=== PATIENT | male | born 1985 | race Caucasian/White ===

== ENCOUNTER 2016-12-22 20:40 | Emergency (ER) | payer OTHER ==
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
[2016-12-22 21:16] VITALS: BP 129/81
== END 2016-12-22 21:14 | disposition home or self-care (01) ==
LOC: UCCORT 20:40
DX: M54.2 Cervicalgia (principal); R51 Headache; F12.90 Cannabis use, unspecified, uncomplicated; F14.90 Cocaine use, unspecified, uncomplicated; F17.210 Nicotine dependence, cigarettes, uncomplicated; Z88.0 Allergy status to penicillin; Z88.2 Allergy status to sulfonamides
CPT/HCPCS: 99213; G0463

== ENCOUNTER 2018-05-10 11:44 | Emergency (ER) | payer SELFPAY ==
[2018-05-10 12:39] VITALS: BP 107/81
--- NOTE | 2018-05-10 12:50 | UC ---
Upper Extremity HPI - HPI Summary HPI Summary: 33-year-old male comes in with a chief complaint of bilateral hand and forearm pain. Been going on for days. Pains been waking him up in the morning. Worse on the left than the right. Pain is in the wrist and the forearms. Pain is worse with gripping or flexing extending of the wrist. The pains present when he wakes up and then gradually gets better however this morning when he woke up with the pain pain is not Better. No weakness or numbness no neck pain no injuries. His similar episode a few years ago in the left arm that was treated with cock-up splint and is improved. 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 - History of Current Complaint Chief Complaint: UCUpperExtremity Stated Complaint: B/L ARM PAIN Time Seen by Provider: 05/10/18 12:37 Pain Intensity: 3 - Allergies/Home Medications Allergies/Adverse Reactions: Allergies Allergy/AdvReac Type Severity Reaction Status Date / Time Penicillins Allergy Pain Verified 05/10/18 12:33 Sulfa (Sulfonamide Allergy Anaphylatic Verified 05/10/18 12:33 Antibiotics) Shock PMH/Surg Hx/FS Hx/Imm Hx Previously Healthy: Yes - Surgical History Surgical History: Yes Surgery Procedure, Year, and Place: L GREAT TOE SX. L SHOULDER SX. EAR TUBES - Family History Known Family History: Positive: Unknown - Social History Alcohol Use: None Substance Use Type: None Substance Use Comment - Amount & Last Used: No current drug use, reports hx of marijuana use, hx of cocaine use Smoking Status (MU): Heavy Every Day Tobacco Smoker Type: Cigarettes Amount Used/How Often: 1 ppd Length of Time of Smoking/Using Tobacco: 10 yrs Have You Smoked in the Last Year: Yes Household Exposure Type: Cigarettes - Immunization History Most Recent Influenza Vaccination: 2014 Most Recent Tetanus Shot: UNSURE Most Recent Pneumonia Vaccination: NEVER Review of Systems All Other Systems Reviewed And Are Negative: Yes Constitutional: Positive: Negative Skin: Positive: Negative Eyes: Positive: Negative ENT: Positive: Negative Respiratory: Positive: Negative Cardiovascular: Positive: Negative Gastrointestinal: Positive: Negative Motor: Positive: Negative Neurovascular: Positive: Negative Musculoskeletal: Positive: Other: - see hpi Neurological: Positive: Negative Psychological: Positive: Negative Is Patient Immunocompromised?: No Physical Exam Triage Information Reviewed: Yes Appearance: Well-Appearing, Well-Nourished, Pain Distress - mild Vital Signs: Initial Vital Signs Temp 98.3 F 05/10/18 12:34 Pulse 69 05/10/18 12:34 Resp 14 05/10/18 12:34 BP 107/81 05/10/18 12:34 Pulse Ox 97 05/10/18 12:34 Vital Signs Reviewed: Yes Eye Exam: Normal Eyes: Positive: Conjunctiva Clear Neck exam: Normal Neck: Positive: Supple, Nontender Respiratory: Positive: Lungs clear, Normal breath sounds, No respiratory distress Cardiovascular: Positive: RRR Musculoskeletal: Positive: Other: - Positive bilateral Tinel's. Pain is worse in the thumb and second third fingers it's less and the fifth and fourth fingers bilaterally. 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 Normal capillary refill no sensation deficit. Neurological Exam: Normal Neurological: Positive: Alert, Muscle Tone Normal Psychological Exam: Normal Psychological: Positive: Normal Response To Family, Age Appropriate Behavior Skin Exam: Normal Skin: Positive: Rashes Upper Extremity Course/Dx - Course Course Of Treatment: Examination and history are consistent with bilateral carpal tunnel syndrome. Patient has no neck pain. We will treat with splints eyes anti-inflammatories and follow-up with orthopedics. - Differential Dx/Diagnosis Provider Diagnosis: Carpal tunnel syndrome on both sides Discharge - Sign-Out/Discharge Documenting (check all that apply): Patient Departure All imaging exams completed and their final reports reviewed: No Studies - Discharge Plan Condition: Stable Disposition: HOME Prescriptions: Ibuprofen TAB* [Motrin TAB* 600 MG] 600 mg PO Q6H PRN #40 tab PRN Reason: Pain Patient Education Materials: Tendinitis (ED) Referrals: Justin Gao MD [Primary Care Provider] - Laurence Reyes MD [Medical Doctor] - Additional Instructions: FOLLOW UP WITH ORTHOPEDICS. GET RECHECKED FOR ANY WORSENING OF YOUR CONDITION OR QUESTIONS OR CONCERNS. - Billing Disposition and Condition Condition: STABLE Disposition: Home
== END 2018-05-10 13:05 | disposition home or self-care (01) ==
LOC: UCCORT 11:44
DX: G56.03 Carpal tunnel syndrome, bilateral upper limbs (principal); Z88.0 Allergy status to penicillin; Z88.2 Allergy status to sulfonamides; F17.210 Nicotine dependence, cigarettes, uncomplicated
CPT/HCPCS: 99213; G0463

== ENCOUNTER 2018-11-20 16:20 | Emergency (ER) | payer BC ==
[2018-11-20 16:39] VITALS: BP 112/66
[2018-11-20] MEDS ORDERED: Lidocaine 1% INJ* 10 MG/ML 30 ML SDV INJ ONE (16:44)
[2018-11-20] MEDS ORDERED: Lidocaine 1% MPF* 2 ML VIAL INJ ONE (16:50)
[2018-11-20] MEDS ORDERED: Lidocaine 1%** 5 ML VIAL INJ ONE (16:59)
--- NOTE | 2018-11-20 17:29 | UC ---
Laceration HPI - HPI Summary HPI Summary: Pt presents with c/o laceration to right thumb, base of thumb, lateral aspect. Pt was washing dishes at home and glass broke while washing and pt cut thumb. Pt is UTD with tetanus. - History Of Current Complaint Chief Complaint: UCLaceration Stated Complaint: RIGHT THUMB LAC Time Seen by Provider: 11/20/18 16:43 Hx Obtained From: Patient Laceration Location: Finger - right thumb Mechanism Of Injury: Sharp Trauma Onset/Duration: Sudden Onset, Still Present Severity: Moderate Pain Intensity: 0 Aggravating Factors: Position, Movement Related History: Dominant Hand Right - Allergies/Home Medications Allergies/Adverse Reactions: Allergies Allergy/AdvReac Type Severity Reaction Status Date / Time Penicillins Allergy Pain Verified 11/20/18 16:31 Sulfa (Sulfonamide Allergy Anaphylatic Verified 11/20/18 16:31 Antibiotics) Shock Home Medications: Home Medications Buprenorp/Nalox 8-2 MG SL TAB [Suboxone 8-2 mg SL TAB*] 1 tab.sl SL DAILY [History Confirmed 11/20/18] PMH/Surg Hx/FS Hx/Imm Hx Previously Healthy: Yes - Surgical History Surgical History: Yes Surgery Procedure, Year, and Place: L GREAT TOE SX. L SHOULDER SX. EAR TUBES - Family History Known Family History: Positive: Unknown - Social History Occupation: Employed Full-time Lives: With Family Alcohol Use: None Substance Use Type: None Substance Use Comment - Amount & Last Used: IN RECOVERY , ON SUBOX[employer] Smoking Status (MU): Heavy Every Day Tobacco Smoker Type: Cigarettes Amount Used/How Often: 1 ppd Length of Time of Smoking/Using Tobacco: 10 yrs Have You Smoked in the Last Year: Yes Household Exposure Type: Cigarettes - Immunization History Most Recent Influenza Vaccination: 2013 Most Recent Tetanus Shot: 2010 Most Recent Pneumonia Vaccination: NEVER Vaccination Up to Date: Yes Review of Systems All Other Systems Reviewed And Are Negative: Yes Constitutional: Positive: Negative Skin: Positive: Other - laceration to right thumb. Eyes: Positive: Negative ENT: Positive: Negative Respiratory: Positive: Negative Cardiovascular: Positive: Negative Gastrointestinal: Positive: Negative Genitourinary: Positive: Negative Motor: Positive: Negative Neurovascular: Positive: Negative Musculoskeletal: Positive: Myalgia - at laceration site Neurological: Positive: Negative Psychological: Positive: Negative Is Patient Immunocompromised?: No Physical Exam Triage Information Reviewed: Yes Appearance: Well-Appearing Vital Signs: Initial Vital Signs Temp 98.7 F 11/20/18 16:32 Pulse 109 11/20/18 16:32 Resp 17 11/20/18 16:32 BP 112/66 11/20/18 16:32 Pulse Ox 98 11/20/18 16:32 Vital Signs Reviewed: Yes Eye Exam: Normal ENT Exam: Normal ENT: Positive: Hearing grossly normal Dental Exam: Normal Neck exam: Normal Respiratory Exam: Normal Respiratory: Positive: No respiratory distress Musculoskeletal Exam: Normal Musculoskeletal: Positive: Strength Intact, ROM Intact Neurological Exam: Normal Psychological Exam: Normal Skin Exam: Other - laceration to right thumb Laceration Repair - Laceration Repair 1 Description: Linear Laceration Size After Repair: Length (cm) - 1.5, Width (mm) - 4, Depth (mm) - 4 Modified For Repair: No Anesthesia Used: 1.0% Lido Cleansing Completed Via Routine Prep: Yes Irrigation With Pressure Irrigation Device: Yes Closure Material: Sutures Closure Method: Single Layer Suture Of: Skin Suture Type: Prolene - 7 sutures of 4-0 prolene placed Laceration Course/Dx - Differential Dx - Laceration/Wound Differental Diagnoses: Laceration - Diagnosis Provider Diagnosis: Laceration of right thumb Discharge - Sign-Out/Discharge Documenting (check all that apply): Patient Departure All imaging exams completed and their final reports reviewed: No Studies - Discharge Plan Condition: Stable Disposition: HOME Patient Education Materials: Care For Your Stitches (ED), Laceration (ED) Referrals: Justin Gao MD [Primary Care Provider] - If Needed Additional Instructions: Please return to clinic in 7-10 days for suture removal. Please monitor for signs or symptoms of infection including but not limited to: increased redness, tenderness, purulent discharge fever and/or red streaking from wound. - Billing Disposition and Condition Condition: STABLE Disposition: Home
== END 2018-11-20 17:51 | disposition home or self-care (01) ==
LOC: UCCORT 16:20
DX: S61.011A Laceration without foreign body of right thumb without damage to nail, initial encounter (principal); W25.XXXA Contact with sharp glass, initial encounter; Y93.G1 Activity, food preparation and clean up; Y92.000 Kitchen of unspecified non-institutional (private) residence as the place of occurrence of the external cause; Z88.0 Allergy status to penicillin; Z88.2 Allergy status to sulfonamides
CPT/HCPCS: 12001; 99211; G0463

== ENCOUNTER 2019-06-01 11:13 | Emergency (ER) | payer BC, MEDICAID ==
[2019-06-01 12:56] VITALS: BP 121/95
--- NOTE | 2019-06-01 13:12 | UC ---
Ear Complaint HPI - HPI Summary HPI Summary: 34-year-old male comes in with chief complaint of upper respiratory tract infection symptoms for more than 10 days.'s been having rhinorrhea and yellow he still has left-sided maxillary sinus pressure. Now is been having left ear pain. He was using Q-tips to clean his left ear and it was quite painful have blood on the Q-tip after cleaning it. No recent fevers. No complaint of any shortness of breath. - History of Current Complaint Chief Complaint: UCEar Stated Complaint: lt ear pain Time Seen by Provider: 06/01/19 13:05 Pain Intensity: 0 - Allergies/Home Medications Allergies/Adverse Reactions: Allergies Allergy/AdvReac Type Severity Reaction Status Date / Time Penicillins Allergy Pain Verified 06/01/19 12:55 Sulfa (Sulfonamide Allergy Anaphylatic Verified 06/01/19 12:55 Antibiotics) Shock Home Medications: Home Medications Omeprazole CAP (NF) [Prilosec CAP* 20 MG] 40 mg PO DAILY 06/01/19 [History Confirmed 06/01/19] PMH/Surg Hx/FS Hx/Imm Hx Previously Healthy: Yes GI/ History: Gastroesophageal Reflux - Surgical History Surgical History: Yes Surgery Procedure, Year, and Place: L GREAT TOE SX. L SHOULDER SX. EAR TUBES - Family History Known Family History: Positive: Unknown - Social History Alcohol Use: None Substance Use Type: None Substance Use Comment - Amount & Last Used: IN RECOVERY , ON SUBOXONE Smoking Status (MU): Heavy Every Day Tobacco Smoker Type: Cigarettes Amount Used/How Often: 1/2 ppd Length of Time of Smoking/Using Tobacco: 10 yrs Have You Smoked in the Last Year: Yes Household Exposure Type: Cigarettes - Immunization History Most Recent Influenza Vaccination: 2013 Most Recent Tetanus Shot: 2010 Most Recent Pneumonia Vaccination: NEVER Vaccination Up to Date: Yes Review of Systems All Other Systems Reviewed And Are Negative: Yes Constitutional: Positive: Other - SEE HPI Skin: Positive: Negative Eyes: Positive: Negative ENT: Positive: Ear Ache, Nasal Discharge, Sinus Congestion, Sinus Pain/ Tenderness Respiratory: Positive: Negative Cardiovascular: Positive: Negative Gastrointestinal: Positive: Negative Motor: Positive: Negative Neurovascular: Positive: Negative Musculoskeletal: Positive: Negative Neurological: Positive: Negative Psychological: Positive: Negative Is Patient Immunocompromised?: No Physical Exam Triage Information Reviewed: Yes Appearance: Well-Appearing, No Pain Distress, Well-Nourished Vital Signs: Initial Vital Signs Temp 97.6 F 06/01/19 12:54 Pulse 67 06/01/19 12:54 Resp 20 06/01/19 12:54 BP 121/95 06/01/19 12:54 Pulse Ox 100 06/01/19 12:54 Vital Signs Reviewed: Yes Eye Exam: Normal Eyes: Positive: Conjunctiva Clear ENT: Positive: Pharyngeal erythema, Nasal congestion, Nasal drainage, TM dull - LEFT, Sinus tenderness, Other - Left ear canal is erythematous and tender to palpation with the tragus and it. The TM bilaterally is intact I do not see evidence of perforation at this time. Neck: Positive: Supple Respiratory: Positive: Lungs clear, Normal breath sounds, No respiratory distress Cardiovascular: Positive: RRR Musculoskeletal: Positive: Strength Intact, ROM Intact Neurological: Positive: Alert, Muscle Tone Normal Psychological: Positive: Age Appropriate Behavior Skin Exam: Normal Ear Complaint Course/Dx - Differential Dx/Diagnosis Provider Diagnosis: Left otitis externa, Left serous otitis media, Sinusitis Discharge ED - Sign-Out/Discharge Documenting (check all that apply): Patient Departure All imaging exams completed and their final reports reviewed: No Studies - Discharge Plan Condition: Stable Disposition: HOME Prescriptions: DOXYcycline CAP(*) [DOXYcycline 100MG CAP(*)] 100 mg PO BID #20 cap Ofloxacin 0.3% (Ear Drop)* [Floxin 0.3% OTIC.KAEL (Ear Drop)] 5 drop LEFT EAR BID #1 bottle Patient Education Materials: Sinusitis (ED), Otitis Externa (ED), Serous Otitis Media (ED) Referrals: Justin Gao MD [Primary Care Provider] - Additional Instructions: FOLLOW UP WITH YOUR DOCTOR IF NOT COMPLETELY IMPROVED. GET REEVALUATED SOONER IF NOT IMPROVING OR WORSE OR ANY QUESTIONS OR CONCERNS. - Billing Disposition and Condition Condition: STABLE Disposition: Home
== END 2019-06-01 13:18 | disposition home or self-care (01) ==
LOC: UCCORT 11:13
DX: H65.92 Unspecified nonsuppurative otitis media, left ear (principal); H60.92 Unspecified otitis externa, left ear; J32.9 Chronic sinusitis, unspecified; K21.9 Gastro-esophageal reflux disease without esophagitis; F17.210 Nicotine dependence, cigarettes, uncomplicated; Z88.0 Allergy status to penicillin; Z88.2 Allergy status to sulfonamides; Z79.899 Other long term (current) drug therapy
CPT/HCPCS: 99212; G0463